=== PATIENT | female | born 1945 | race Caucasian/White ===

== ENCOUNTER 2024-09-25 09:20 | Outpatient (AMB) | payer MEDICARE, SELFPAY ==
--- OUTSIDE RECORDS SUMMARY | 2024-07-23 07:30 | XMS_ITS ---
Author Organization [facility] Address [address] [place] [address] Care Team Providers Care Parcel Post Officer Name Role Phone Sumanth Infante Primary Care Provider Unavailabl Gurjit Sahu Unavailable [phone] Encounters Encounter Location Date Provider Diagnosis [address] [address] 07/23/2024 Gurjit Lira Plan Of Treatment Next Appt Details Provider Name:Gurjit Lira , 12/04/2024 10:00:00 AM, [address] [place] [address], [phone], Progress Notes * Marisa TEJADA DDOB: 7 (79 yo F)Acc No.[id number]:07/23/2024 Progress Note Patient: Marisa DARDEN Provider: Micah Lira DPM :1945 A ge:79 Y S ex:Female Date:07/23/2024 Address:[address] [place], [place] [id number] Pcp:Sumanth Infante Subjective: * Chief Complaints: * [...] 07/23/2024 Generated for Luigi fofana/Ana Paula/Bonita on: 0 09/25/2024 09:36 AM EDT
--- OUTSIDE RECORDS SUMMARY | 2024-09-25 09:36 | XMS_ITS | Clinical Summary ---
Author Organization [facility] [address] [facility] Address [address] [place] [address] Phone Care Team Providers Care Agricultural Research Technician Name Role Phone Sumanth Locke MD Primary Care Provider [phone] Allergies No known active allergies Medications calcium carbonate/vitam in D3 (CALCIUM 600 + D,3, ORAL) Take 2 Tablets by mouth daily. Active ascorbic acid, vitamin C, 500 mg capsule Take 1 Tablet by mouth daily. Active cholecalciferol (VITAMIN D-3) 50 mcg (2,000 unit) tablet Active albuterol HFA (PROAIR HFA ; PROVENTIL HFA ; VENTOLIN HFA) 90 mcg/actuation inhaler Inhale 2 Puffs into the lungs every 4 hours as needed. Active famotidine (PEPCID) 20 mg tablet Take 1 tablet (20 mg total) by mouth 1 (one) time each day. Active B complex-vitamin C tablet Take 1 tablet by mouth 1 (one) time each day. Active zinc gluconate 50 mg tablet Take 1 tablet (50 mg total) by mouth 1 (one) time each day. Active B complex-vitamin C-folic acid (NICO-TAWNY) 1-60-300 mg-mg-mcg tablet Take 1 tablet by mouth 1 (one) time each day with breakfast. Active Active Problems Problem Noted Date Diagnosed Date Endometrial cancer, grade I (CMS/HCC V24, CMS/HC C V28) 02/19/2024 Polymyalgia rheumatica ([facility]/HCC V24) 02/19/2024 HEIDI on CPAP 02/19/2024 Dyspnea 12/13/2021 Overview (01/11/2024): Last Assessment & Plan: Patient reports 1 episode of dyspnea while trying to climb out of the beach through the sand no further episodes. No indication of ischemia or infarct on nuclear images. I reviewed the images myself the apical cap is an artifact on this contractility is normal there is no indication of myocardial infarction or residual ischemic disease. Patient needs no further cardiac follow-up she is relatively asymptomatic she is welcome to come back if she develops a change in her symptom pattern. Abnormal EKG 12/09/2021 Hypercholesterolemia 12/09/2021 Encounters Date Type Department Care Team Description 09/19/2024 Telephone Gastroenterology - [address] [place] [address] Maritza Mccrary PA Reschedule from Last 3 Months Surgical History Surgery Date Site/Laterality Comments SECTION 1975 PROCEDURE: HISTORICAL DELIVERY SECTION 1978 PROCEDURE: HISTORICAL DELIVERY COLONOSCOPY 08/10/2022 - 09/08/2022 recall 5 years OTHER SURGICAL HISTORY PROCEDURE: HISTORY OTHER; COMMENT: Polypectomy on cervix OTHER SURGICAL HISTORY 02/08/2009 PROCEDURE: [place] DILATION & CURETTAGE DX&/THER NONOBSTETRIC HIP ARTHROPLASTY 11/24/2011 Left PROCEDURE: HISTORICAL HIP REPLACEMENT HIP ARTHROPLASTY 05/07/2012 PROCEDURE: HISTORICAL HIP REPLACEMENT HYSTERECTOMY ESOPHAGOGASTRODUODENOSCOPY 08/10/2022 - 09/08/2022 Medical History Medical History Date Comments Arthritis DX:Arthritis Elevated LFTs DX:Elevated LFTs Granulocytopenia ([facility]/HCC V24) D X:Granulocytopenia (HCC) Sleep apnea DX:Sleep apnea PMR (polymyalgia rheumatica) (CMS/HCC V24) DX:PMR (polymyalgia rheumatica) ([facility]) History of varicose veins DX:His tory of varicose veins Obesity DX:Obesity Family History Medical History Relation Name Comments Arthritis Father Colon cancer Father Asthma Mother Osteoporosis Mother Colon cancer Paternal Grandfather Relation Name Status Comments Father Mother Paternal Grandfather Social History Tobacco Use Types Packs/Day Years Used Date Smoking Tobacco: Never Smokeless Tobacco: Never Alcohol Use Standard Drinks/Week Comments Not Currently 0 (1 standard drink = 0.6 oz pur e alcohol) Comments Unknown Sex and Gender Information Value Date Recorded Sex Assigned at Not on file Legal Sex Female 4:20 PM EST Gender Identity Not on file Sexual Orientation Not on file Obstetrics History Last Filed Vital Signs Vital Sign Reading Time Taken Comments Blood Pressure 126/74 07/14/2021 2:15 PM EDT Sit ting L Arm Pulse 92 12/13/2021 1:33 PM EDT Temperature - - Respiratory Rate - - Oxygen Saturation - - Inhaled Oxygen Concentration - - Weight 55.3 kg (122 lb) 04/24/2024 12:5 5 PM EST Height 161.9 cm (5' 3.75 ) 04/24/2024 1 2:55 PM EST Body Mass Index 21.11 04/24/2024 12:55 PM EST Plan of Treatment Health Maintenance Due Date Last Done Comments DTaP,Tdap,and Td Vaccines (1 - Tdap) 1966 Pneumococcal Vaccine: 50+ Years (1 of 1 - PCV) 1997 Cholesterol Screening (Lipid Panel) 02/08/2022 Depression Screening 02/08/2022 Falls Risk Assessment 02/08/2022 Hepatitis C Screening 02/08/2022 Osteoporosis Screening (Bone Density Screening) 02/08/2022 Social Influencers of Health Screening 02/08/2022 Medicare Annual Wellness Visit 10/18/2023 10/17/2022 COVID-19 Vaccine ( season) 2023 12/31/2020, 06/04/2020, 05/14/2020 Influenza Vaccine (#1) 2024 , 12/20/2022, 12/16/2021, Additional history exists Zoster Vaccines Completed 01/19/2023, 10/19/2022 RSV Immunization Adult Patients Completed 11/19/2023 Colorectal Cancer Screening: Colonoscopy Discontinued 02/20/2024 HIB Vaccines Aged Out No longer eligi ble based on patient's age to complete this topic HPV Vaccines Aged Out No longer eligi ble based on patient's age to complete this topic Hepatitis A Vaccines Aged Out No long er eligible based on patient's age to complete this topic Hepatitis B Vaccines Aged Out No long er eligible based on patient's age to complete this topic IPV Vaccines Aged Out No longer eligi ble based on patient's age to complete this topic MMR Vaccines Aged Out No longer eligi ble based on patient's age to complete this topic Meningococcal ACWY Vaccine Aged Out N o longer eligible based on patient's age to complete this topic Meningococcal B Vaccine Aged Out No l onger eligible based on patient's age to complete this topic RSV Immunization Patients Under 20 months Aged Out No longer eligible based on patient's age to complete this topic Varicella Vaccines Aged Out No longer eligible based on patient's age to complete this topic Procedures Procedure Name Priority Date/Time Associated Diagnosis Comments COLONOSCOPY Routine 02/20/2024 1:55 PM EST from Last 3 Months or Most Recently Relevant to Health Maintenance Results * COLONOSCOPY (02/20/2024 1:55 PM EST) Anatomical Region Laterality Modality Endoscopy us Historical Provider GI~PROCEDURE ORDERABLES F inal Result from Last 3 Months or Most Recently Relevant to Health Maintenance Insurance MEDICARE [facility] Care Teams Agricultural Research Technician Relationship Specialty Start Date End Date Sumanth Locke MD [address] [place] [address] PCP - General Ophthalmology 04/24/24
[2024-09-25 09:39] VITALS: BP 140/70; PULSE 61; O2SAT 97
--- NOTE | 2024-09-25 09:39 | MHC.OFFVIS ---
Vital Signs 09/25/24 09:39 Weight 119 lb BP 140/70 H Blood Pressure Location Rt brachial Position Sitting Pulse 61 Pulse Source Pulse Oximeter Pulse Oximetry (%) 97 Oxygen Delivery Method Room Air Intake Visit Reasons: ENP-Worsening hand shaking Intake Note: Worsening hand shaking Partnership Marketing Manager Required: No Accompanied by: Self / Same As Patient Medication List - Last Reconciled 09/25/24 by Scarlett Adams MD dicyclomine 10 mg PO BID famotidine 20 mg PO BEDTIME HPI Comments Details: 79y/o Left handed female comes for evaluation of tremors and sleep apnea she started noticing tremors about 2 years ago in her hands. The tremors are present at rest and active.It was mild and intermittent and has worsened. She has difficulty with activities- like using utensils, cutting food, eating , stopped writing etc. Her brother who is 2 years older has parkinsons disease. she has mild voice tremors- feels like there are marbles in her mouth she stumbles a lot while walking and her balance is poor. she does not lift her feet. she has anxiety- no panic attacks No depression She was diagnosed with Obstructive sleep apnea and is on CPAP 17 years ago and has been using the same equipment.Her homecare company is [employer].she also reports excessive daytime sleepiness. [facility] Medical History (Updated 09/25/24 @ 10:15 by Scarlett Adams MD) Coarse tremors Obstructive sleep apnea Anxiety Endometrial cancer Obesity History of varicose veins PMR (polymyalgia rheumatica) Sleep apnea Granulocytopenia Elevated LFTs Hypercholesteremia Family hx of colon cancer Arthritis Physical Exam Vital Signs: Last Vital Signs Pulse 61 09/25/24 09:39 BP 140/70 H 09/25/24 09:39 Pulse Ox 97 09/25/24 09:39 Oxygen Delivery Method Room Air 09/25/24 09:39 Const Orientation/consciousness: patient oriented x3 Eyes Pupils: Equal, round and reactive pupils present Neuro Other: Gait- antalgic , genu valgum , good stride , normal base , normal arm swings Mild postural and action tremors verónica writing - difficult but recognizable Head tremors and mild voice tremors General: patient oriented x3, moves all extremities and no focal motor deficits Cranial nerves: Yes Equal, round and reactive pupils present, Yes Bilaterally intact EOM present, Yes Nystagmus not present, Yes Normal facial strength present, Yes Midline tongue present, Yes Symmetric palate elevation present and Yes Ability to bilaterally elevate shoulders present Cognition (Neuro): normal cognition Motor exam (neuro): 5/5 motor strength present throughout and Normal motor muscle tone present throughout Deep tendon reflexes (DTR's): Right triceps reflex intensity grade: 2+, Left triceps reflex intensity grade: 2+, Rt Biceps (C5, C6): 2+, Left biceps reflex intensity grade: 2+, Right brachioradialis reflex intensity grade: 2+, Left brachioradialis reflex intensity grade: 2+, Right patellar reflex intensity grade: 2+ and Left patellar reflex intensity grade: 2+ Coordination: [id number] test normal Assessment & Plan Assessment & Plan (1) Coarse tremors: Comment: likely senile tremors worsened by anxiety . NO EVIDENCE OF PARKINSONS Code(s): G25.2 - Other specified forms of tremor Category: Medical (2) Anxiety: Code(s): F41.9 - Anxiety disorder, unspecified Category: Medical (3) Obstructive sleep apnea: Code(s): G47.33 - Obstructive sleep apnea (adult) (pediatric) Category: Medical Plan I will trial her on Propranolol 10mg bid Citalopram 10mg qd for anxiety Home sleep test to reevaluate sleep apnea. Orders: Orders RT home sleep study Today G47.10 - Hypersomnia, unspecified, R06.83 - Snoring Medications: New citalopram 10 mg PO DAILY 30 tabs 6RF propranolol 10 mg PO BID 60 tabs 6RF Coding Level of Care Code New Pt Level 4 (88770) Complex EM visit Add On G2211 Diagnoses Coarse tremors G25.2 Anxiety F41.9 Obstructive sleep apnea G47.33
== END 2024-09-25 10:15 | disposition home or self-care (01) ==
LOC: HO.HSMS 09:21
PROVIDERS: PCP Internal Medicine; Visit Provider Psychiatry & Neurology Neurology
DX: G25.2 Other specified forms of tremor (principal); F41.9 Anxiety disorder, unspecified; G47.33 Obstructive sleep apnea (adult) (pediatric)
CPT/HCPCS: 99204; G2211

== ENCOUNTER → 2024-09-25 09:20 | Outpatient (BNVA) | payer MEDICARE, SELFPAY | PROVIDERS: PCP Internal Medicine; Visit Provider Psychiatry & Neurology Neurology | DX: G25.2 Other specified forms of tremor (principal); G47.33 Obstructive sleep apnea (adult) (pediatric); F41.9 Anxiety disorder, unspecified; Z79.899 Other long term (current) drug therapy | CPT/HCPCS: 99202 ==

== ENCOUNTER → 2024-10-21 12:42 | Outpatient (REF) | payer MEDICARE, SELFPAY ==
--- OUTSIDE RECORDS SUMMARY | 2024-07-23 07:30 | XMS_ITS ---
Author Organization [facility] Address [address] [place] [address] Care Team Providers Care Throat Cutter Name Role Phone Sumanth Infante Primary Care Provider Unavailabl Gurjit Sahu Unavailable [phone] Encounters Encounter Location Date Provider Diagnosis [address] [address] 07/23/2024 Gurjit Lira Plan Of Treatment Next Appt Details Provider Name:Gurjit Lira , 12/04/2024 10:00:00 AM, [address] [place] [address], [phone], Progress Notes * Marisa TEJADA DDOB: [birth year] (79 yo F)Acc No.[id number]:07/23/2024 Progress Note Patient: Marisa DARDEN Provider: Micah Lira DPM :1945 A ge:79 Y S ex:Female Date:07/23/2024 Address:[address] [place], [place] [phone] Pcp:Sumanth Infante Subjective: * Chief Complaints: * [...] Generated for Luigi fofana/Ana Paula/Bonita on: 0 10/21/2024 01:22 PM EDT
--- OUTSIDE RECORDS SUMMARY | 2024-10-21 13:23 | XMS_ITS | Clinical Summary ---
Author Organization [facility] 299 [facility] Address [address] [place] [address] Phone Care Team Providers Care Lathe Operator Contact Lens Name Role Phone Sumanth Locke MD Primary Care Provider [phone] Allergies No known active allergies Medications calcium [...] V24, CMS/HC C V28) 02/19/2024 Polymyalgia rheumatica ([facility]/HCC V24) 02/19/2024 HEIDI on CPAP 02/19/2024 Dyspnea [...] 09/19/2024 Telephone Gastroenterology - [address] [place] [address] Maritza Mccrary PA Reschedule from Last 3 Months Surgical History Surgery Date Site/Laterality Comments SECTION 1975 PROCEDURE: HISTORICAL DELIVERY SECTION 1978 PROCEDURE: HISTORICAL DELIVERY COLONOSCOPY 08/10/2022 - 09/08/2022 recall 5 years OTHER SURGICAL HISTORY PROCEDURE: HISTORY OTHER; COMMENT: Polypectomy on cervix OTHER SURGICAL HISTORY 02/08/2009 PROCEDURE: [place] DILATION & CURETTAGE DX&/THER NONOBSTETRIC HIP ARTHROPLASTY 11/24/2011 Left PROCEDURE: HISTORICAL HIP REPLACEMENT HIP ARTHROPLASTY 05/07/2012 PROCEDURE: HISTORICAL HIP REPLACEMENT HYSTERECTOMY ESOPHAGOGASTRODUODENOSCOPY 08/10/2022 - 09/08/2022 Medical History Medical History Date Comments Arthritis DX:Arthritis Elevated LFTs DX:Elevated LFTs Granulocytopenia ([facility]/HCC V24) D X:Granulocytopenia (HCC) Sleep apnea DX:Sleep apnea PMR (polymyalgia rheumatica) (CMS/HCC V24) DX:PMR (polymyalgia rheumatica) ([facility]) History of varicose veins DX:His tory of [...] 04/24/2024 12:55 PM EST Plan of Treatment Upcoming Encounters Date Type Department Care Team (Late st Contact Info) Description 11/13/2024 3:30 PM EDT Office Visit Gastroenterology - [address] [place] [phone] Maritza Mccrary PA [address] [place] [address] Health Maintenance Due Date Last Done Comments DTaP,Tdap,and Td Vaccines (1 - Tdap) 1966 Pneumococcal Vaccine: 50+ Years (1 of 1 - PCV) 1997 Cholesterol Screening (Lipid Panel) 02/08/2022 Falls Risk Assessment 02/08/2022 Hepatitis C Screening 02/08/2022 Osteoporosis Screening (Bone Density Screening) 02/08/2022 Social Influencers of Health Screening 02/08/2022 Medicare Annual Wellness Visit 10/18/2023 10/17/2022 COVID-19 Vaccine ( season) 2023 12/31/2020, 06/04/2020, 05/14/2020 Depression Screening 03/12/2024 Influenza Vaccine (#1) 2024 , 12/20/2022, 12/16/2021, [...] PM EST) Anatomical Region Laterality Modality Endoscopy Historical Provider GI~PROCEDURE ORDERABLES F inal Result from Last 3 Months or Most Recently Relevant to Health Maintenance Insurance MEDICARE [facility] Care Teams Lathe Operator Contact Lens Relationship Specialty Start Date End Date Sumanth Locke MD [address] [place] [address] PCP - General Ophthalmology 04/24/24
== END ==
LOC: HO.SL 12:42
PROVIDERS: PCP Internal Medicine; Visit Provider Psychiatry & Neurology Neurology
DX: R06.83 Snoring (principal); G47.10 Hypersomnia, unspecified
CPT/HCPCS: 95806

== ENCOUNTER → 2024-10-21 13:46 | Outpatient (BNV) | payer MEDICARE, SELFPAY | PROVIDERS: PCP Internal Medicine; Visit Provider Psychiatry & Neurology Neurology | DX: R06.83 Snoring (principal) | CPT/HCPCS: 95806 ==

== ENCOUNTER 2025-01-28 12:41 | Outpatient (AMB) | payer MEDICARE, SELFPAY ==
--- OUTSIDE RECORDS SUMMARY | 2024-05-29 08:30 | XMS_ITS ---
Author Organization [facility] Address [address] [place] [address] Care Team Providers Care Photographer Portrait Name Role Phone Sumanth Infante Primary Care Provider Unavailabl Gurjit Sahu Unavailable [phone] Encounters Encounter Location Date Provider Diagnosis [address] [address] 05/29/2024 Gurjit Lira Plan Of Treatment Next Appt Details Provider Name:Gurjit Lira , 03/26/2025 10:00:00 AM, [address] [place] [address], [phone], Progress Notes * Marisa TEJADA DDOB: [birth year] (79 yo F)Acc No.[id number]:05/29/2024 Progress Note Patient: Marisa DARDEN Provider: Micah Lira DPM :1945 A ge:79 Y S ex:Female Date:05/29/2024 Address:[address] [place], [place] [phone] Pcp:Sumanth Infante Subjective: * Chief Complaints: * * Medical History: Objective: * Vitals: Assessment: Plan: * Treatment: * Images: * The named appointment provid er may or may not be the originator of this progress note, and it is not deemed complete until electronically signed by the appointment provider. Sign off status: Pending * Provider: Micah Lira DPM Date: 0 05/29/2024 Generated for Luigi fofana/Ana Paula/Bonita on: 1 03/31/2024 12:03 AM EST
--- OUTSIDE RECORDS SUMMARY | 2024-07-23 06:30 | XMS_ITS ---
Author Organization [facility] Address [address] [place] [address] Care Team Providers Care Certifier Name Role Phone Sumanth Infante Primary Care Provider Unavailabl Gurjit Sahu Unavailable [phone] Encounters Encounter Location Date Provider Diagnosis [address] [address] 07/23/2024 Gurjit Lira Plan Of Treatment Next Appt Details Provider Name:Gurjit Lira , 03/26/2025 10:00:00 AM, [address] [place] [address], [place], [phone], Progress Notes * Marisa TEJADA DDOB: [birth year] (79 yo F)Acc No.[id number]:07/23/2024 Progress Note Patient: Marisa DARDEN Provider: Micah Lira DPM :1945 A ge:79 Y S ex:Female Date:07/23/2024 Address:[address] [place], [place] [phone] Pcp:Sumanth Infante Subjective: * Chief Complaints: * * Medical History: Objective: * Vitals: Assessment: Plan: * Treatment: * Images: * The named appointment provid er may or may not be the originator of this progress note, and it is not deemed complete until electronically signed by the appointment provider. Sign off status: Pending * Provider: Micah Lira DPM Date: 0 07/23/2024 Generated for Luigi fofana/Ana Paula/Bonita on: 1 03/31/2024 12:02 AM EST
--- NOTE | 2025-01-28 12:47 | A.OFFVIS_ITS ---
Vital Signs 01/28/25 12:50 Height 5 ft 3.75 in Weight 123 lb 8 oz BMI 21.4 BP 130/82 Blood Pressure Location Rt brachial Position Sitting Pulse 59 Pulse Source Pulse Oximeter Pulse Oximetry (%) 98 Oxygen Delivery Method Room Air Intake Visit Reasons: 4mnth follow up Intake Note: Follow up Coarse tremors, anxiety and HEIDI. See Home sleep study Hot Roller Required: No Accompanied by: Self / Same As Patient Allergies No Known Allergies Allergy (Verified 01/28/25 12:52) Medication List - Last Reconciled 01/28/25 by Scarlett Adams MD amoxicillin 2,000 mg PO citalopram 10 mg PO DAILY dicyclomine 10 mg PO BID docusate sodium 100 mg PO BID PRN famotidine 20 mg PO BEDTIME propranolol 1-2 tabs orally 2 times a day; HPI Comments Details: 79y/o Left handed female comes for follow up of tremors and sleep apnea Home sleep test - was inconclusive . when she does not use CPAP she wakes up with headache and hypersomnia. Propranolol helped a little -still has action tremors. 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 The tremors are present at rest and active.It was mild and intermittent and has worsened. She has difficulty with activities- like using utensils, cutting food, eating , stopped writing etc. Her brother who is 2 years older has parkinsons disease. she has mild voice tremors- feels like there are marbles in her mouth she stumbles a lot while walking and her balance is poor. she does not lift her feet. she has anxiety- no panic attacks No depression She was diagnosed with Obstructive sleep apnea and is on CPAP 17 years ago and has been using the same equipment.Her homecare company is [employer].she also reports excessive daytime sleepiness. [facility] Medical History Coarse tremors Obstructive sleep apnea Anxiety Endometrial cancer Obesity History of varicose veins PMR (polymyalgia rheumatica) Sleep apnea Granulocytopenia Elevated LFTs Hypercholesteremia Family hx of colon cancer Arthritis Surgical History H/O cervical polypectomy History of colonoscopy History of Family History Father History of prostate cancer Mother No problems noted. Brother History of prostate cancer Physical Exam Vital Signs: Last Vital Signs Pulse 59 01/28/25 12:50 BP 130/82 01/28/25 12:50 Pulse Ox 98 01/28/25 12:50 Oxygen Delivery Method Room Air 01/28/25 12:50 BMI result Body Mass Index 21.4 Const Orientation/consciousness: patient oriented x3 Eyes Pupils: Equal, round and reactive pupils present Neuro Other: Gait- antalgic , genu valgum , good stride , normal base , normal arm swings Mild postural and action tremors verónica writing - difficult but recognizable Head tremors and mild voice tremors General: patient oriented x3, moves all extremities and no focal motor deficits Cranial nerves: Yes Equal, round and reactive pupils present, Yes Bilaterally intact EOM present, Yes Nystagmus not present, Yes Normal facial strength present, Yes Midline tongue present, Yes Symmetric palate elevation present and Yes Ability to bilaterally elevate shoulders present Cognition (Neuro): normal cognition Motor exam (neuro): 5/5 motor strength present throughout and Normal motor muscle tone present throughout Coordination: utuurn-ex-hobg test normal Assessment & Plan Assessment & Plan (1) Coarse tremors: Comment: likely senile tremors worsened by anxiety . NO EVIDENCE OF PARKINSONS Code(s): G25.2 - Other specified forms of tremor Category: Medical (2) Anxiety: Code(s): F41.9 - Anxiety disorder, unspecified Category: Medical (3) Obstructive sleep apnea: Code(s): G47.33 - Obstructive sleep apnea (adult) (pediatric) Category: Medical Plan Propranolol 10mg bid extra 1 tab prior to activities Citalopram 10mg qd for anxiety Home sleep test was inconclusive . i will schedule her for in lab study fro a mike detailed eval. Continue cPAP Orders: Orders RT PSG in-lab sleep study Today G47.33 - Obstructive sleep apnea (adult) (pediatric) Medications: Changed From propranolol 10 mg PO BID 60 tabs 6RF To propranolol 1-2 tabs orally 2 times a day; 120 tabs 6RF Coding Level of Care Code Est Pt Level 4 (81052) Complex EM visit Add On G2211 Diagnoses Coarse tremors G25.2 Anxiety F41.9 Obstructive sleep apnea G47.33
[2025-01-28 12:50] VITALS: BP 130/82; PULSE 59; O2SAT 98; BMI 21.4
--- OUTSIDE RECORDS SUMMARY | 2025-01-29 00:03 | XMS_ITS | Clinical Summary ---
Author Organization [facility] [address] [facility] Address [address] [place] [address] Phone Care Team Providers Care Biofuels Research Scientist Name Role Phone Sumanth Locke MD Primary Care Provider Allergies No known active allergies Medications calcium [...] lungs every 4 hours as needed. Active B complex-vitamin C tablet Take 1 tablet by mouth 1 (one) time each day. Active zinc gluconate 50 mg tablet Take 1 tablet (50 mg total) by mouth 1 (one) time each day. Active B complex-vitamin C-folic acid (NICO-TAWNY) 1-60-300 mg-mg-mcg tablet Take 1 tablet by mouth 1 (one) time each day with breakfast. Active citalopram (CeleXA) 10 mg tablet Take 1 tablet (10 mg total) by mouth 1 (one) time each day. 09/26/19 25 Active propranoloL (INDERAL) 10 mg tablet Take 1 tablet (10 mg total) by mouth 2 (two) times a day. 09/26/19 25 Active dicyclomine (BENTYL) 20 mg tablet Take by mouth 4 (four) times a day (before meals and nightly). Active docusate sodium (COLACE) 50 mg capsule Take 1 capsule (50 mg total) by mouth 2 (two) times a day. Active famotidine (PEPCID) 20 mg tabletIndicatio ns:Gastroesopha geal reflux disease, unspecified whether esophagitis present,Epigast marianela pain TAKE 1 TABLET BY MOUTH EVERYDAY AT BEDTIME 90 tablet 3 01/24/20 25 Active famotidine (PEPCID) 20 mg tablet Take 1 tablet (20 mg total) by mouth 1 (one) time each day. 025 Discontinued Active Problems Problem Noted Date Diagnosed Date Diverticulitis 11/11/2024 PMB (postmenopausal bleeding) 11/11/2024 Thickened endometrium 11/11/2024 Endometrial cancer, grade I (CMS/[facility] V24, CMS/HC C V28) 02/19/2024 Polymyalgia rheumatica (CMS/[facility] V24) 02/19/2024 HEIDI on CPAP 02/19/2024 Dyspnea [...] Encounters Date Type Department Care Team Description 11/13/2024 3:30 PM EDT Office Visit Gastroenterology - [address] [facility] [address] [place] [id number] Maritza Mccrary PA Irritable bowel syndrome with both constipation and diarrhea (Primary Dx); Gastroesophageal reflux disease, unspecified whether esophagitis present from Last 3 Months Immunizations Immunization Administration Dates Next Due Influenza Quadravalent, 0.5m l (Fluad) 65yo and older 12/10/2020 Influenza Quadravalent, 0.5m l (Fluzone High-dose) 65yo and older 12/20/2022,12/16/2021,01/02/2020 Influenza trivalent, 0.5mL ( Fluad) 65yo and older 01/04/2018 Influenza trivalent, 0.5mL ( Fluzone High-dose) 65yo and older 01/19/2025,12/03/2023,12/03/2018,2016 RSV, bivalent, protein subun it RSVpreF, 0.5mL, Preservative Free (Arexvy) 50yo and older 11/19/2023 Zoster recombinant (Shingrix ) 19yo and older 01/19/2023,10/19/2022 Surgical History Surgery Date Site/Laterality Comments SECTION 1975 PROCEDURE: HISTORICAL DELIVERY SECTION 1978 PROCEDURE: HISTORICAL DELIVERY COLONOSCOPY 08/10/2022 - 09/08/2022 recall 5 years OTHER SURGICAL HISTORY PROCEDURE: HISTORY OTHER; COMMENT: Polypectomy on cervix OTHER SURGICAL HISTORY 02/08/2009 PROCEDURE: SC DILATION & CURETTAGE DX&/THER NONOBSTETRIC HIP ARTHROPLASTY 11/24/2011 Left PROCEDURE: HISTORICAL HIP REPLACEMENT HIP ARTHROPLASTY 05/07/2012 PROCEDURE: HISTORICAL HIP REPLACEMENT HYSTERECTOMY ESOPHAGOGASTRODUODENOSCOPY 08/10/2022 - 09/08/2022 Medical History Medical History Date Comments Arthritis DX:Arthritis Elevated LFTs DX:Elevated LFTs Granulocytopenia ([facility]/HCC V24) D X:Granulocytopenia ([facility]) Sleep apnea DX:Sleep apnea PMR (polymyalgia rheumatica) (CMS/HCC V24) DX:PMR (polymyalgia rheumatica) ([facility]) History of varicose veins DX:His tory of [...] - Inhaled Oxygen Concentration - - Weight 55.8 kg (123 lb) 11/13/2024 3:17 PM EDT Height 160 cm (5' 3 ) 11/13/2024 3:17 PM EDT Body Mass Index 21.79 11/13/2024 3:17 PM EDT Plan of Treatment Health Maintenance Due Date Last Done Comments DTaP,Tdap,and Td Vaccines (1 - Tdap) 1966 Pneumococcal Vaccine: 50+ Years (1 of 1 - PCV) 1997 Cholesterol Screening (Lipid Panel) 02/08/2022 Falls Risk Assessment 02/08/2022 Hepatitis C Screening 02/08/2022 Osteoporosis Screening (Bone Density Screening) 02/08/2022 Social Influencers of Health Screening 02/08/2022 Medicare Annual Wellness Visit 10/18/2023 10/17/2022 Depression Screening 03/12/2024 COVID-19 Vaccine ( season) 2024 12/31/2020, 06/04/2020, 05/14/2020 Zoster Vaccines Completed 01/19/2023, 10/19/2022 RSV Immunization Adult Patients Completed 11/19/2023 Colorectal Cancer Screening: Colonoscopy Discontinued 02/20/2024 Influenza Vaccine Completed 01/19/2025, , 12/20/2022, Additional history exists HIB Vaccines Aged Out No longer eligi [...] Recently Relevant to Health Maintenance Insurance MEDICARE [facility] Care Teams Biofuels Research Scientist Relationship Specialty Start Date End Date Sumanth Locke MD [address] [place] [id number] PCP - General Ophthalmology 04/24/24
--- OUTSIDE RECORDS SUMMARY | 2025-01-29 00:03 | XMS_ITS | Patient Health Record ---
Author Organization [facility] Address [address] [place] [address] Care Team Providers Care Supervisor Coke Handling Name Role Phone Sumanth Infante Primary Care Provider Gurjit Mace Unavailable [phone] Allergies No Known Allergies Reason For Referral No Information Medications Medication SIG (Take, Route, Fr equency, Duration) Notes Start Date End Date Status Calcium 150 MG Orally Activ e Zinc Active Vitamin C 500 MG Orally Act jess Vitamin D 1000 UNIT 1 tablet Orally Once a day Active B Complex Active Vitamin B Complex Ac tive Famotidine 20 MG 1 tablet at bedtime as needed Orally Once a day Active Immunizations Vaccine Route Administration Date Status Comme nts Influenza Unknown 01/22/2024 Administered COVID-19 Pfizer BioNTech Vaccine Unknown 06/04/2020 Administered 1st 05/14/2020 2nd 06/04/2020 Social History Tobacco Use: Social History Observation Description Date Details (start date - stop date) Never Smoker NA - NA Tobacco use other than smoking: Question Answer Notes Are you an other tobacco user? No Tobacco Control (Standard) Question Answer Notes Tobacco use: Nonsmoker Additional Findings: Tobacco non-user Current no nsmoker AUDIT-C (Standard) Question Answer Notes Did you have a drink containing alcohol in the p ast year? No Points 0 Interpretation Negative Problems Problem Type SNOMED Code ICD Code Onset Dates Problem Status W/U Status Risk Notes Problem Bilateral atherosclerosis of arteries of lower limbs (disorder) ([id number] ) Atherosclerosis of [place] artery of both lower extremities, with unspecified presence of clinical manifestation (I70.203) Active confirmed Vital Signs Blood pressure diastolic 70 mm Hg 12/04/2024 Height 5ft 3in in 12/04/2024 Blood pressure systolic 122 mm Hg 12/04/2024 Weight 124 lbs 12/04/2024 BMI 21.96 kg/m2 12/04/2024 Procedures Procedure Date Ordered Date Performed Result Body Sit e 23298-GIGHUDC NAIL, 6 OR MORE 02/21/2024 N/A 52001-YBZO SKIN LESIONS, OVER 4 02/21/2024 N/A 83106-WPZRDQC NAIL, 6 OR MORE 05/27/2024 N/A 74849-NBPV SKIN LESIONS, OVER 4 05/27/2024 N/A 16313-VSBGRZG NAIL, 6 OR MORE 08/28/2024 N/A 44891-SVVK SKIN LESIONS, OVER 4 08/28/2024 N/A 04288-ICUHMDI NAIL, 6 OR MORE 12/04/2024 N/A 32216-CPGH SKIN LESIONS, OVER 4 12/04/2024 N/A Encounters Encounter Location Date Provider Diagnosis [address] [address] 02/21/2024 Gurjit Lira Atherosclerosis of [place] artery of both lower extremities, with unspecified presence of clinical manifestation I70.203 ; Tinea unguium B35.1 ; Pain in right toe(s) M79.674 and Pain in left toe(s) M79.675 [facility] [address] [place] [address] 05/27/2024 Gurjit Lira Atherosclerosis of [place] artery of both lower extremities, with unspecified presence of clinical manifestation I70.203 ; Tinea unguium B35.1 ; Pain in right toe(s) M79.674 and Pain in left toe(s) M79.[address] [address] 08/28/2024 Gurjit Pankaj Atherosclerosis of [place] artery of both lower extremities, with unspecified presence of clinical manifestation I70.203 ; Tinea unguium B35.1 ; Pain in right toe(s) M79.674 and Pain in left toe(s) M79.[address] [address] 12/04/2024 Gurjit Lira Atherosclerosis of [place] artery of both lower extremities, with unspecified presence of clinical manifestation I70.203 ; Tinea unguium B35.1 ; Pain in right toe(s) M79.674 and Pain in left toe(s) M79.675 [facility] [place] [address] [address] 05/26/2024 Gurjit Lira Assessments Encounter Date Diagnosis (ICD Code) Assessment Notes Treatment Notes Treatment Clinical Notes Section Notes 02/21/2024 Tinea unguium (ICD-10 - B35.1) 02/21/2024 Atherosclerosis of [place] artery of both lower extremities, with unspecified presence of clinical manifestation (ICD-10 - I70.203) 05/27/2024 Tinea unguium (ICD-10 - B35.1) 05/27/2024 Atherosclerosis of [place] artery of both lower extremities, with unspecified presence of clinical manifestation (ICD-10 - I70.203) 08/28/2024 Tinea unguium (ICD-10 - B35.1) 08/28/2024 Atherosclerosis of [place] artery of both lower extremities, with unspecified presence of clinical manifestation (ICD-10 - I70.203) 12/04/2024 Tinea unguium (ICD-10 - B35.1) 12/04/2024 Atherosclerosis of [place] artery of both lower extremities, with unspecified presence of clinical manifestation (ICD-10 - I70.203) 12/04/2024 Pain in right toe(s) (ICD-10 - M79.674) 05/27/2024 Pain in right toe(s) (ICD-10 - M79.674) 08/28/2024 Pain in right toe(s) (ICD-10 - M79.674) 02/21/2024 Pain in right toe(s) (ICD-10 - M79.674) 02/21/2024 Pain in left toe(s) (ICD-10 - M79.675) 08/28/2024 Pain in left toe(s) (ICD-10 - M79.675) 05/27/2024 Pain in left toe(s) (ICD-10 - M79.675) 12/04/2024 Pain in left toe(s) (ICD-10 - M79.675) Plan Of Treatment Pending Test Test Name Order Date 76146-CACBOKH NAIL, 6 OR MORE 01/03/2012 17307-SPGCLQY NAIL, 6 OR MORE 03/25/2012 36277-IIVZIEX NAIL, 6 OR MORE 06/17/2012 47461-WMECFFT NAIL, 6 OR MORE 09/16/2012 30756-SFUAPNV NAIL, 6 OR MORE 12/11/2012 66011-XAKCNEG NAIL, 6 OR MORE 03/26/2013 35480-LQYNQZB NAIL, 6 OR MORE 07/21/2013 76685-AAEXJNS NAIL, 6 OR MORE 10/02/2013 49649-IVLVPYH NAIL, 6 OR MORE 12/18/2013 46125-FFUCEWN NAIL, 6 OR MORE 03/19/2014 89804-CSZORKD NAIL, 6 OR MORE 04/01/2015 34034-VNSXSIV NAIL, 6 OR MORE 06/23/2015 84295-OILJMVC NAIL, 6 OR MORE 09/22/2015 29219-VGEYEWJ NAIL, 6 OR MORE 12/22/2015 28130-BKUQTNB NAIL, 6 OR MORE 03/29/2016 20063-RVJOEFO NAIL, 6 OR MORE 08/09/2016 46239-CIGIEQU NAIL, 6 OR MORE 12/13/2016 31685-TBMJFLQ NAIL, 6 OR MORE 05/03/2017 08715-RWMFPAR NAIL, 6 OR MORE 10/15/2017 66135-ECATVPZ NAIL, 6 OR MORE 01/14/2018 72458-QCNNJOF NAIL, 6 OR MORE 05/15/2018 53769-IQIGCCV NAIL, 6 OR MORE 09/09/2018 12971-QAKZGUF NAIL, 6 OR MORE 01/13/2019 18922-ZDMUPTW NAIL, 6 OR MORE 05/12/2019 65699-GGPNIWE NAIL, 6 OR MORE 10/13/2019 54917-DJXHNAL NAIL, 6 OR MORE 02/16/2020 17667-RQVVBIG NAIL, 6 OR MORE 07/15/2020 72852-DUOHNXB NAIL, 6 OR MORE 11/24/2020 40788-KTHSJAU NAIL, 6 OR MORE 04/20/2021 12373-HWRAJFJ NAIL, 6 OR MORE 08/23/2021 75011-URQJYLC NAIL, 6 OR MORE 12/29/2021 42778-VENZZGT NAIL, 6 OR MORE 04/27/2022 04670-ROVTZNP NAIL, 6 OR MORE 06/18/2014 38375-QIXZBTM NAIL, 6 OR MORE 09/30/2014 59565-STLOHDQ NAIL, 6 OR MORE 12/28/2014 70575-JUNLJCN NAIL, 6 OR MORE 08/17/2022 51161-MEANMFY NAIL, 6 OR MORE 12/14/2022 42714-AFDPRZH NAIL, 6 OR MORE 04/16/2023 05942-OKLEMDD NAIL, 6 OR MORE 08/13/2023 59212-NCWYOJS NAIL, 6 OR MORE 11/14/2023 76835-NSFTLFJ NAIL, 6 OR MORE 02/21/2024 62398-HPCSFZE NAIL, 6 OR MORE 05/27/2024 79413-PKBRBIV NAIL, 6 OR MORE 08/28/2024 81156-TIJUYLO NAIL, 6 OR MORE 12/04/2024 69402-Ohmcuazm Plate 09/16/2012 90804-Rvgnoycp Plate 12/28/2014 42384-Tgwslwaq Plate 09/30/2014 85483-Crlfnioq Plate 06/18/2014 12087-Ngdxyowp Plate 03/19/2014 12491-Thansupw Plate 12/18/2013 65030-Mmymoaqo Plate 10/02/2013 05837-Lfovyvap Plate 07/21/2013 22938-Yarufcxr Plate 03/26/2013 96136-Szxpdzah Plate 12/11/2012 69478-Nkwmkeym Plate 01/03/2012 37113-Qscydkal Plate 03/25/2012 15202-Dgtofczy Plate Each Additional 53300-Yzxphlnt Plate Each Additional 89728-Ntjnfvem Plate Each Additional 53124-Cpnqedle Plate Each Additional 02/2014 30111-Gqwoefdm Plate Each Additional 72657-Qniybrit Plate Each Additional 11/2013 70034-Ecbdtptn Plate Each Additional 10/2014 15837-Wltgnopi Plate Each Additional 11/2014 44680-Qlgyayey Plate Each Additional 19275-Zelmjxlc Plate Each Additional 74595-Lizdrmld Plate Each Additional 04/2012 04542- Debride <25 sq cm 12/28/2014 85682- Debride <25 sq cm 09/30/2014 02168- Debride <25 sq cm 06/18/2014 33822- Debride <25 sq cm 03/19/2014 57051- Debride <25 sq cm 12/18/2013 18395-WRIN SKIN LESIONS, OVER 4 08/18/19 23 10834-SUZW SKIN LESIONS, OVER 4 04/27/19 23 04759-LQAG SKIN LESIONS, OVER 4 12/05/19 25 94165-NMSZ SKIN LESIONS, OVER 4 08/29/19 25 99439-UDBO SKIN LESIONS, OVER 4 05/28/19 25 70161-VZQH SKIN LESIONS, OVER 4 02/21/20 24 47600-VMXM SKIN LESIONS, OVER 4 11/14/19 24 68939-BTGP SKIN LESIONS, OVER 4 08/13/19 24 54421-JQNI SKIN LESIONS, OVER 4 04/16/19 24 26061-PINK SKIN LESIONS, OVER 4 12/15/19 23 94536-QUFT SKIN LESIONS, 2 TO 4 10/03/19 14 25491-OTHR SKIN LESIONS, 2 TO 4 07/22/19 14 54459-RHLP SKIN LESIONS, 2 TO 4 03/26/19 14 84000-DXYC SKIN LESIONS, 2 TO 4 12/12/19 13 96032-NXIV SKIN LESIONS, 2 TO 4 09/17/19 13 65351-DDMZ SKIN LESIONS, 2 TO 4 06/18/19 13 Next Appt Details Provider Name:Gurjit Lira , 03/26/2025 10:00:00 AM, [facility] [address], [place], [address], Insurance Providers Payer Name Payer Address Payer Phone Subscriber Number Group Number Insured Name Patient Relationship to Insured Coverage Start Date Coverage End Date Medicare National Govt PubGame [facility] [address] [place] [address] [id number] Marisa Tejada Self - patient is the insured 4 [employer] [address] [place] [address] [phone] [id number] Marisa Tejada Self - patient is the insured 4 Medical (General) History Medical History History ICD Code Arthritis back, hip, knee pain chicken pox joint implants/screws measles transfusions Uterine CA IBS Surgical History Surgery Date(Month/Year) hip replacement - left 11/24/11 section 07/30/78 & 06/26/75 colonoscopy 2019 Uterus removal 06/2022 Hospitalization History Reason Date(Month/[place] [facility] [place], hyste[place] 3 [facility]- D&C, biopsy 05/30/22 [facility]- hip replacement- right 05/07/2012 [facility] - hip replacement-left 11/24/2011
== END 2025-01-28 13:25 | disposition home or self-care (01) ==
LOC: HO.HSMS 12:42
PROVIDERS: PCP Internal Medicine; Visit Provider Psychiatry & Neurology Neurology
DX: G25.2 Other specified forms of tremor (principal); F41.9 Anxiety disorder, unspecified; G47.33 Obstructive sleep apnea (adult) (pediatric)
CPT/HCPCS: 99214; G2211

== ENCOUNTER → 2025-01-28 12:41 | Outpatient (BNVA) | payer MEDICARE, SELFPAY | PROVIDERS: PCP Internal Medicine; Visit Provider Psychiatry & Neurology Neurology | DX: G47.33 Obstructive sleep apnea (adult) (pediatric) (principal); Z99.89 Dependence on other enabling machines and devices; G25.2 Other specified forms of tremor; F41.9 Anxiety disorder, unspecified; R26.81 Unsteadiness on feet | CPT/HCPCS: 99212 ==